=== PATIENT | male | born 1995 | race Caucasian/White ===

== ENCOUNTER 2018-10-11 08:50 | Emergency (ER) | payer OTHER ==
[2018-10-11] MEDS ORDERED: SODIUM CHLORIDE 0.9% FLUSH 10 ML SOL IV PRN (08:54)
[2018-10-11] MEDS ORDERED: SODIUM CHLORIDE 0.9% 1000ML 1,000 ML IV SCH (08:55)
[2018-10-11 09:09] LABS: BASOPHILS % (AUTO) 1 % (0-3); EOSINOPHILS % (AUTO) 2 % (0-9); HEMATOCRIT 48 % (39-53); HEMOGLOBIN 16.2 gm/dl (13.5-17.7); LYMPHOCYTES % (AUTO) 15.4 % (10-50); MEAN CORPUSCULAR HEMOGLOBIN 29.1 pg (27.0-32.0); MEAN CORPUSCULAR HGB CONC 33.5 gm/dl (32.0-36.0); MEAN CORPUSCULAR VOLUME 87 fL (80-100); MONOCYTES % (AUTO) 4.3 % (0-12); NEUTROPHILS % (AUTO) 76.8 % (37-80)
[2018-10-11 09:12] VITALS: TEMP 98
[2018-10-11 09:21] LABS: ALBUMIN 4.4 gm/dl (3.4-5.0); BILIRUBIN,TOTAL 0.9 mg/dl (0.2-1.0); CALCIUM 8.8 mg/dl (8.5-10.1); CARBON DIOXIDE 27.1 mEq/L (21-32); CREATININE 1.18 mg/dl (0.80-1.30); POTASSIUM 3.6 mMol/L (3.5-5.1); TOTAL PROTEIN 7.3 gm/dl (6.4-8.2)
[2018-10-11] MEDS ORDERED: MORPHINE SULFATE 10 MG/ML SOL IV ONE (09:49)
[2018-10-11] MEDS ORDERED: ONDANSETRON HCL 4 MG/2 ML SOL IV ONE (09:49)
[2018-10-11] MEDS ORDERED: MORPHINE SULFATE 10 MG/ML SOL ONE (09:56)
[2018-10-11 10:34] LABS: ABO O; ANTIBODY SCREEN Negative; RH TYPE Positive
[2018-10-11 11:31] VITALS: O2SAT 98
[2018-10-11 12:02] VITALS: BP 143/90; PULSE 113; RESP 14
== END 2018-10-11 11:10 | disposition home or self-care (01) | DRG 999 ==
LOC: ED 08:50
DX: V89.2XXA Person injured in unspecified motor-vehicle accident, traffic, initial encounter (principal); S09.90XA Unspecified injury of head, initial encounter; M62.838 Other muscle spasm; S80.02XA Contusion of left knee, initial encounter; R51 Headache; R11.0 Nausea; M25.512 Pain in left shoulder; M25.551 Pain in right hip; R40.2362 Coma scale, best motor response, obeys commands, at arrival to emergency department; R40.2142 Coma scale, eyes open, spontaneous, at arrival to emergency department; R40.2252 Coma scale, best verbal response, oriented, at arrival to emergency department
CPT/HCPCS: 36415; 70450; 71045; 72125; 73560; 74177; 80053; 85025; 86850; 86900; 86901; 93005; 96365; 96366; 96374; 99284; 99285; G0390; J2270; Q9967